=== PATIENT | male | born 1995 | race African-American/Black ===

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

== ENCOUNTER 2019-09-21 08:53 | Inpatient (IN) ==
[2019-09-21] MEDS ORDERED: ZOSYN 4.5 GM in NS 100 ML IV ONE (09:18)
[2019-09-21] MEDS ORDERED: VANCOMYCIN 1 GM/NS 1 GM/250 ML IVPB IV ONE (09:18)
--- NOTE | 2019-09-21 09:20 | PROVIDER DOCUMENTATION ---
HPI-Musculoskeletal Pain/Inj - GENERAL Chief Complaint: Abscess Stated Complaint: ABSCESS/LEFT HAND Time Seen by Provider: 09/21/19 09:05 Source: patient, police - HX OF PRESENT ILLNESS-MUSKULOSKELTAL Nature of Presenting Problem: 24yom presents to ED to report increased pain/swelling left hand despite taking Bactrim DS 2 PO BID since last ED visit Saturday. He denies fever/chills/N/V. Quality of Pain: reports: aching Severity in ED: moderate Onset/Duration: gradual, 5 days ago Timing: still present, getting worse Modifying Factors: improves with: movement Any recent injury?: No Locality of Occurance: Home Similar Symptoms Previously?: No Recently seen or treated by another doctor?: No Review of Systems - Adult - REVIEW OF SYSTEMS - ADULT Constitutional: reports: no symptoms reported. denies: chills, fever Eyes: reports: no symptoms reported Ears, Nose, Mouth & Throat: reports: no symptoms reported Cardiovascular: reports: no symptoms reported Respiratory: reports: no symptoms reported Gastrointestinal: reports: no symptoms reported Genitourinary: reports: no symptoms reported Musculoskeletal: reports: see HPI, other (left hand pain) Integumentary: reports: see HPI, other (left hand redness/swelling) Neurological: reports: no symptoms reported Psychiatric: reports: no symptoms reported Endocrine: reports: no symptoms reported Hematologic/Lymphatic: reports: no symptoms reported Allergic/Immunologic: reports: no symptoms reported All Other Systems: Reviewed and Negative Past History - Adult - PAST MEDICAL HISTORY-ADULT Review of Records: reports: Old Records Reviewed, Nursing Assessment Review, Medications Reviewed, Social history reviewed & non-contributory. Major Childhood Illnesses: reports: denies history Cardiovascular: reports: denies history Respiratory: reports: denies history Gastrointestinal: reports: denies history Obstetrical/Gynecological: reports: denies history Genitourinary: reports: denies history Musculoskeletal: reports: denies history Neurological: reports: denies history Endocrine/Immune: reports: denies history Other Conditions: reports: denies history - PRIOR SURGERIES/PROCEDURES Surgical/Procedure History: reports: none - IMMUNIZATION STATUS Childhood Immunizations: See Nurse Assessment Flu Vaccine: See Nurse Assessment - FAMILY HISTORY Family History: reviewed, not pertinent - SOCIAL HISTORY Smoking: non-smoker Living Situation: family Physical Exam-Injury Related - Physical Exam-Injury Related Initial Vital Signs Reviewed: Yes General Appearance: appears well, alert, no apparent distress Eyes: PERRL/EOMI, pink conjunctivae Head, Ears, Nose, Mouth & Throat: normocephalic/atraumatic, moist mucous membranes, normal ENT inspection Neck: non-tender, supple, normal inspection Respiratory: chest non-tender, lungs clear, normal breath sounds Cardiovascular: normal peripheral pulses, regular rate, rhythm Peripheral Pulses: radial (R): 4+, radial (L): 4+ Abdominal Exam: normal bowel sounds, non tender, soft, no organomegaly Lymphatic: no adenopathy Back Exam: normal inspection, no CVA tenderness, no vertebral tenderness Extremity: normal range of motion, normal gait, swelling (left hand moderately erythematous and edematous; cap ref < 3sec) Integumentary: warm/dry, other (left hand erythematous and edematous) Neurologic: [employer] rules footballer II-XII nml as tested, grossly normal, no motor/sensory deficits Psych/Mental Status: normal mood/affect, normal thought content, normal thought process, oriented x 3 Progress - PLAN OF CARE/RESULTS Progress/Plan/Lab Results: Vital Signs - 8 hr 09/21/19 09:01 Temperature 98.1 F Pulse Rate 87 Respiratory Rate 18 Blood Pressure 155/85 O2 Sat by Pulse Oximetry 99 Laboratory Results - last 24 hr 09/21/19 09:45 WBC 16.72 H RBC 4.21 L Hgb 12.7 L Hct 39.3 L MCV 93.3 MCH 30.2 MCHC 32.3 L RDW Std Deviation 12.3 Plt Count 262 MPV 10.2 Immature Gran % (Auto) 0.4 Neut % (Auto) 74.0 Lymph % (Auto) 14.3 L Baxter % (Auto) 9.9 H Eos % (Auto) 1.3 Baso % (Auto) 0.1 Immature Gran # (Auto) 0.07 H Neut # (Auto) 12.38 H Lymph # (Auto) 2.39 Baxter # (Auto) 1.65 H Eos # (Auto) 0.21 Baso # (Auto) 0.02 Orders Category Date Time Status Saline Loc NOW Care 09/21/19 09:18 Active HAND COMPLETE LEFT [RAD] Stat Exams 09/21/19 09:19 Completed BLOOD CULTURE [BLDCUL] Stat Lab 09/21/19 10:03 Received CBC WITH DIFF [HEME] Stat Lab 09/21/19 09:45 Completed COMPREHENSIVE METABOLIC PANEL [CHEM] Stat Lab 09/21/19 09:45 Received LACTATE, PLASMA [CHEM] Stat Lab 09/21/19 09:45 Received Piperacillin/Tazobactam [Zosyn] 4.5 gm Med 09/21/19 09:18 Discontinued 0.9% Sodium Chloride Inj [Ns] 100 ml IV NOW Vancomycin 1 gm/Ns Med 09/21/19 09:18 Discontinued 1 gm in 250 ml IV NOW Result Diagrams: 09/21/19 09:45 - REASSESSMENT Reassessment #1 Time Reassessed: 10:23 (Paged Hospitalist service for admit related to left hand abscess and cellulitis.) Reassessment #2 Time Reassessed: 10:27 (Spoke with Mally, Hospitalist ADÁN, she accepts for admit to Dr. Mauro and may consult surgery after she examines patient.) Departure - Departure Date of Disposition Decision: 09/21/19 Time of Disposition Decision: 10:23 DIAGNOSIS: Cutaneous abscess of left hand, Cellulitis of left hand Disposition: ADMITTED INPATIENT 09 Certified Medical Emergency: Emergent Condition: Stable Referrals and Follow-Ups: None,PCP [Primary Care Provider] - - Critical Care Note This patient required my direct & personal management of CC.: No Attestation - Physician/ ADRI Attestation Patient care was provided by Advanced Practice Provider:: Yes Advanced Practice Provider:: Alondra Abdi Advanced Practice Provider documentation review:: The Mid-level provider documentation, treatment plan and medical decision making was reviewed by the physician who agrees with all treatment and medical decision making by the [facility]. The physician spent face to face time with patient:: No Advanced Practice Provider documentation review:: Supervising physician onsite and consulted in the evaluation and care of this patient. The physician did not have a face to face encounter with the patient.
--- NOTE | 2019-09-21 09:42 | Diag Imaging Result Doc PS360 ---
EXAM: HAND COMPLETE LEFT HISTORY: left hand pain TECHNIQUE: Three views COMPARISON: None. FINDINGS: No fracture. No dislocation. Normal joint spaces. No bone erosions. Normal mineralization. No other bony abnormality. IMPRESSION: Negative study Electronically signed by Sage Monique 09/21/2019 9:40 AM
[2019-09-21 10:05] LABS: BASO# 0.02 X1000 (0.0-0.2); BASO% 0.1 % (0.0-0.8); EOS# 0.21 X1000 (0.0-0.7); EOS% 1.3 % (0.0-10.0); HEMATOCRIT 39.3 % (42.0-52.0); HEMOGLOBIN 12.7 g/dL (14.0-18.0); IMM GRAN# 0.07 X1000 (0.0-0.04); IMM GRAN% 0.4 % (0.0-0.5); LYMPH# 2.39 X1000 (1.2-3.4); LYMPH% 14.3 % (20.5-51.1); MCH 30.2 PG (27-31); MCHC 32.3 g/dL (33-37); MCV 93.3 FL (81-99); MONO# 1.65 X1000 (0.11-0.59); MONO% 9.9 % (1.7-9.3); MPV 10.2 FL (7.4-10.4); NEUT# 12.38 X1000 (1.4-6.5); PLT 262 X1000 (130-400); RBC 4.21 XMIL (4.7-6.1); RDW 12.3 % (11.5-14.5); WBC 16.72 X1000 (4.8-10.8)
[2019-09-21 10:44] LABS: AGAP 11; ALB/GLOB RATIO 1.2; ALBUMIN 3.9 g/dL (3.5-5.0); ALKALINE PHOSPHATASE 83 U/L (32-122); BUN 7 mg/dL (8-22); CALCIUM 8.9 mg/dL (8.8-10.2); CHLORIDE 106 mmol/L (98-107); COSMO 279; CREATININE 0.7 mg/dL (0.7-1.2); ESTIMATED GFR > 60; GLUCOSE 102 mg/dL (70-104); GOT 21 U/L (10-34); GPT 16 U/L (10-44); POTASSIUM 3.8 mmol/L (3.5-5.1); SODIUM 141 mmol/L (136-145); TCO2 24 mmol/L (25-35); TOTAL BILIRUBIN 0.26 mg/dL (0.20-1.00); TOTAL PROTEIN 7.2 g/dL (6.3-8.3)
[2019-09-21] MEDS ORDERED: ZOFRAN IV PRN (11:14)
[2019-09-21] MEDS ORDERED: TORADOL IV ONE (11:14)
[2019-09-21] MEDS ORDERED: VANCOMYCIN IV PER PHARMACY MISC SCH (11:14)
[2019-09-21] MEDS ORDERED: TYLENOL PO PRN (11:14)
[2019-09-21] MEDS ORDERED: NS 1,000 ML IV SCH (11:14)
--- NOTE | 2019-09-21 11:48 | HISTORY AND PHYSICAL ---
CHIEF COMPLAINT: Worsening pain and swelling to the left hand after having a splinter 2 weeks ago. HISTORY OF PRESENTING ILLNESS: This is a 24-year-old male who presents to [facility] with complaints of increased pain and swelling to his left hand after he had attempted to remove a splinter approximately 2 weeks ago. Was in the emergency room on 09/18/2019 and diagnosed with a left hand cellulitis and was placed on Bactrim DS and he has been taking that medication. Currently is an inmate at the [facility] and has been receiving his medications as prescribed but no improvement. He is now noted to have an abscess to the left palm with erythema and edema that streaks up his left arm, unable to close his hand due to the pain and edema. Denied any fever, chills, nausea, vomiting. Workup did show a white blood cell count of 16.72, so he will be admitted to the medical unit for further evaluation and treatment. PAST MEDICAL HISTORY: ADHD. PAST SURGICAL HISTORY: None. FAMILY HISTORY: Reviewed, noncontributory. SOCIAL HISTORY: He typically lives with family, but is currently an inmate at [facility] for an unknown reason and states he has been there about a month and a half. States he was a previous smoker of 2 to 3 cigarettes a day. Denied any alcohol use and did smoke marijuana previously but of course, none since he has been locked up. ALLERGIES: Tomato. HOME MEDICATIONS: No medications routinely at this time. LABORATORY DATA: Showed a white blood cell count of 16.72, hemoglobin 12.7, hematocrit 39.3, platelets 262,000. Sodium 141, potassium 3.8, chloride 106, CO2 24, BUN of 7, creatinine 0.7. Plasma lactate of 1.1. Left hand x-ray showed a negative study. REVIEW OF SYSTEMS: He denied any fever, chills, blurred vision, dizziness, chest pain, coughing. No shortness of breath. He did have pain to his left hand, worse with any type of movement. Denied any constipation, diarrhea, burning or hurting with urination. PHYSICAL EXAMINATION: On arrival he had a temperature of 98.1 degrees, pulse 87, respirations 18, blood pressure 155/85, and was saturating 99% on room air. GENERAL: This is a 24-year-old male lying in the bed and answers questions appropriately. HEENT: Normocephalic, atraumatic. Normal ENT inspection. Oropharynx and nares are clear. EYES: Pupils are equal, round, reactive to light and accommodation. Extraocular movements are intact. NECK: Normal inspection, normal range of motion. LUNGS: Clear to auscultation bilaterally with equal lung expansion and chest wall movement. HEART: Regular rate and rhythm. No murmurs, rubs, or gallops. ABDOMEN: Soft, nontender, nondistended. Bowel sounds are present x 4 quadrants. MUSCULOSKELETAL: He had 5/5 strength to his right upper extremity and bilateral lower extremity. Left upper extremity unable to assess due to the cellulitis, abscess to his left hand. NEUROLOGICAL: The cranial nerves 2-12 appear grossly intact. ASSESSMENT: 1. Left hand abscess/cellulitis with failed outpatient treatment. 2. Leukocytosis. 3. Tobacco abuse. PLAN: He will be admitted to the medical unit. Placed on a regular diet. We will place him on vancomycin per pharmacy protocol, Zosyn 3.375 g IV q. 6. We will consult Surgery. We discussed smoking cessation with this patient who verbalized understanding. We will recheck a CBC and BMP in the a.m. I will give him some Roach 7.5 one p.o. q.4 hours p.r.n. for pain until seen by Surgery and further orders after seen by attending and bus info consultant. Dictated by ADÁN Hays for Dusty Umana MD Addendum: Patient seen and examined by myself. Agree with ADÁN note. It reflects my assessment and plan. Patient is being admitted to hospital for hand abscess. Surgery will be consulted. Will be discharged once is cleared by surgeon. cc: ADÁN Hays MD [facility]
[2019-09-21] MEDS ORDERED: VANCOMYCIN 2,300 MG in NS 500 ML IV ONE (13:00)
[2019-09-21] MEDS ORDERED: DIPRIVAN 1% ONE (16:08)
[2019-09-21] MEDS ORDERED: ROBINUL ONE (16:09)
[2019-09-21] MEDS ORDERED: XYLOCAINE-MPF 2% ONE (16:09)
[2019-09-21] MEDS ORDERED: ZOFRAN ONE (16:19)
[2019-09-21] MEDS ORDERED: OFIRMEV 1000 MG/ISOTONIC SOLN 1,000 MG/100 ML BOTTLE ONE (16:19)
[2019-09-21] MEDS ORDERED: TORADOL ONE (16:19)
[2019-09-21] MEDS ORDERED: DEMEROL ONE (16:53)
--- NOTE | 2019-09-21 17:09 | CONSULTATION ---
DATE OF CONSULTATION: 09/21/2019 Vaughn David is a 24-year-old black male who is incarcerated. Evidently had a foreign body involving his left hand which he described as a splinter which he thought he removed but he had swelling of his hand cellulitis. He was seen our emergency department about 2 days ago, started on Bactrim but clinically he has just worsened and now he is admitted and we were asked to evaluate him because of soft tissue abscess involving his left hand. X-rays of the left hand show no evidence of fracture. PAST MEDICAL HISTORY: ADHD. PAST SURGICAL HISTORY: None. MEDICATIONS: He has been on Bactrim recently and pain medicine. FAMILY HISTORY: Reviewed and noncontributory. ALLERGIES: Tomato. HOME MEDICATIONS: No home medications. REVIEW OF SYSTEMS: A 14-point review of systems was performed and was essentially negative except for the history of present illness. He is at [facility] at this time. He typically lives with his family. He is a smoker. He does use marijuana. On exam, Mr. David is a healthy young black male in no acute distress. HEENT: No jaundice. No oral lesions. Satisfactory dentition. No cervical or supraclavicular lymphadenopathy. His heart has regular rate. Lungs are clear to auscultation and percussion bilaterally. His abdomen soft, nontender without palpable mass. He has palpable peripheral pulses. He has a swollen left hand with what appears to be undrained purulence on the palmar side mid palmar aspect left hand. He has swelling of his left hand and cellulitis going up his left forearm. He does have a palpable left radial pulse. IMPRESSION: Soft tissue abscess left hand probably related to splinter or foreign body. Unresponsive to p.o. antibiotics and local wound care. He will need to go to surgery for incision and drainage. Will make him n.p.o. and plan to do that this afternoon. I spoke with the patient about the procedure and he wants to proceed. cc: Marguerite Kerr MD
[2019-09-21] MEDS: DILAUDID ONE ×4 (17:11→17:32)
[2019-09-21] MEDS ORDERED: NORCO-7.5 ONE (17:48)
[2019-09-21] MEDS ORDERED: PHENERGAN ONE (17:48)
[2019-09-21] MEDS: ZOSYN 3.375 GM in NS 50 ML IV SCH (19:55)
--- NOTE | 2019-09-21 21:41 | OPERATIVE NOTE ---
PROCEDURE DATE: 09/21/2019 PREOPERATIVE DIAGNOSIS: Soft tissue abscess palmar aspect, left hand. POSTOPERATIVE DIAGNOSIS: Soft tissue abscess palmar aspect, left hand. PRINCIPAL PROCEDURE: Incision and drainage with debridement of skin, subcutaneous tissue, of abscess palmar aspect, left hand. SURGEON: Dr. Cirilo MD. ANESTHESIA: General. ESTIMATED BLOOD LOSS: 25 mL. DRAINS: None. INDICATIONS: Vaughn David is a 24-year-old, black male who is in [facility]. He feels that he suffered a splinter in this area of his hand several days ago. He felt that he got the foreign body out several days ago. He was seen in our emergency department, placed on p.o. antibiotics, but the swelling and pain in his left hand got worse and he also has cellulitis involving his left forearm. He is admitted through the emergency department. We were asked to evaluate him. FINDINGS: He had thick pus in the deep soft tissue abscess palmar aspect mid left hand. DESCRIPTION OF PROCEDURE: The patient was brought to the operating room, placed supine, received general anesthesia, and was ventilated. His left hand was prepped and draped within a sterile field. He had an obvious purulence in the middle of his palm, left hand. I made an incision with a 15 blade scalpel to drain this abscess cavity. We took cultures and then the suction was used to drain the purulence. This abscessed cavity went into the deep tissue of his left hand. We made sure that the abscess cavity was widely opened and all pus was drained. The we used forceps and tissue scissors to debride necrotic skin and subcutaneous tissue. We did not have to debride any tendon or bone or muscle. We thoroughly irrigated out the abscess cavity once we were sure that it was totally opened with 3 L of saline to gravity drain. We then packed the wound open with iodoform gauze followed by dry dressing and a Kerlix wrap. He tolerated the procedure well with plans for him to go the recovery room and then be readmitted to the floor for ongoing IV antibiotics. cc: Marguerite Kerr MD
[2019-09-21] MEDS: VANCOMYCIN 1,700 MG in NS 250 ML IV SCH (23:31)
[2019-09-21] MEDS: NORCO-7.5 PO PRN (23:31)
[2019-09-21] MEDS: PERIDEX MT SCH (23:38)
[2019-09-22] MEDS: ZOSYN 3.375 GM in NS 50 ML IV SCH ×6 (02:32→20:32)
[2019-09-22] MEDS: VANCOMYCIN 1,700 MG in NS 250 ML IV SCH ×2 (02:33→13:10)
[2019-09-22] MEDS: NORCO-7.5 PO PRN ×4 (03:50→22:01)
[2019-09-22 06:24] LABS: BASO# 0.02 X1000 (0.0-0.2); BASO% 0.1 % (0.0-0.8); EOS# 0.23 X1000 (0.0-0.7); EOS% 1.7 % (0.0-10.0); HEMATOCRIT 38.1 % (42.0-52.0); HEMOGLOBIN 12.3 g/dL (14.0-18.0); IMM GRAN# 0.04 X1000 (0.0-0.04); IMM GRAN% 0.3 % (0.0-0.5); LYMPH# 2.43 X1000 (1.2-3.4); LYMPH% 17.8 % (20.5-51.1); MCH 30.4 PG (27-31); MCHC 32.3 g/dL (33-37); MCV 94.3 FL (81-99); MONO# 1.22 X1000 (0.11-0.59); MONO% 8.9 % (1.7-9.3); MPV 10.3 FL (7.4-10.4); NEUT# 9.73 X1000 (1.4-6.5); NEUT% 71.2 % (42.2-75.2); PLT 256 X1000 (130-400); RBC 4.04 XMIL (4.7-6.1); RDW 12.1 % (11.5-14.5); WBC 13.67 X1000 (4.8-10.8)
[2019-09-22 06:51] LABS: AGAP 13; BUN 12 mg/dL (8-22); CALCIUM 9.1 mg/dL (8.8-10.2); CHLORIDE 103 mmol/L (98-107); COSMO 280; CREATININE 0.9 mg/dL (0.7-1.2); ESTIMATED GFR > 60; GLUCOSE 108 mg/dL (70-104); POTASSIUM 3.7 mmol/L (3.5-5.1); SODIUM 140 mmol/L (136-145); TCO2 24 mmol/L (25-35)
[2019-09-22] MEDS: PERIDEX MT SCH ×2 (08:35→20:32)
--- NOTE | 2019-09-22 18:34 | PROGRESS NOTE ---
DATE: 09/22/2019 INTERVAL HISTORY: He underwent incision and drainage of his hand, which he tolerated well of palmar aspect. He complains of mild pain, but that is tolerable. He is denying any other complaints. I discussed about MRSA suspected. I answered all of his questions. VITAL SIGNS: He has been afebrile with temperature of 98.5 degrees, pulse of 71, respiratory 18, blood pressure 140/70, saturating 96% on room air. PHYSICAL EXAMINATION: General: Not in acute distress. Oral cavity is moist. Lungs: Air entry bilaterally equal. No wheeze, rhonchi, crackles. Cardiovascular: S1, S2 normal. No murmur, rub, or gallop. Abdomen: Soft, nontender. No lower extremity edema. Extremities: His left arm is in a bandage. He is able to move his fingers. LABORATORY DATA: Suggestive of improving leukocytosis, normocytic anemia, normal platelet count. Normal electrolytes. MICROBIOLOGY: No new data except the Gram stain is growing gram-positive cocci. ASSESSMENT AND PLAN: 1. Left hand palmar aspect abscess with cellulitis status post failed outpatient treatment, now status post incision and drainage on September 21. I will continue him on intravenous antibiotics. Follow up final culture results. 2. Tobacco abuse. He was initially counseled on tobacco cessation. DISPOSITION: Continue to monitor patient inside the hospital for need for IV antibiotics. Plan of care discussed with him. His questions were answered. cc: Telly Estrada MD
[2019-09-22] MEDS: NICODERM PATCH TD SCH (23:51)
[2019-09-23] MEDS: VANCOMYCIN 1,700 MG in NS 250 ML IV SCH ×2 (01:43→15:49)
[2019-09-23] MEDS: NORCO-7.5 PO PRN ×3 (03:00→13:26)
[2019-09-23] MEDS: ZOSYN 3.375 GM in NS 50 ML IV SCH (03:00)
[2019-09-23 06:45] LABS: BASO# 0.03 X1000 (0.0-0.2); BASO% 0.3 % (0.0-0.8); EOS# 0.29 X1000 (0.0-0.7); EOS% 3.1 % (0.0-10.0); HEMATOCRIT 41.6 % (42.0-52.0); HEMOGLOBIN 13.5 g/dL (14.0-18.0); IMM GRAN# 0.04 X1000 (0.0-0.04); IMM GRAN% 0.4 % (0.0-0.5); LYMPH# 2.39 X1000 (1.2-3.4); LYMPH% 25.9 % (20.5-51.1); MCH 30.2 PG (27-31); MCHC 32.5 g/dL (33-37); MCV 93.1 FL (81-99); MONO% 10.8 % (1.7-9.3); NEUT# 5.49 X1000 (1.4-6.5); NEUT% 59.5 % (42.2-75.2); PLT 284 X1000 (130-400); RBC 4.47 XMIL (4.7-6.1); RDW 12.1 % (11.5-14.5); WBC 9.24 X1000 (4.8-10.8)
[2019-09-23 07:08] LABS: AGAP 14; BUN 10 mg/dL (8-22); CALCIUM 8.9 mg/dL (8.8-10.2); CHLORIDE 101 mmol/L (98-107); COSMO 279; CREATININE 0.7 mg/dL (0.7-1.2); ESTIMATED GFR > 60; GLUCOSE 101 mg/dL (70-104); POTASSIUM 3.9 mmol/L (3.5-5.1); SODIUM 140 mmol/L (136-145); TCO2 25 mmol/L (25-35)
[2019-09-23] MEDS: NICODERM PATCH TD SCH (08:09)
[2019-09-23] MEDS: PERIDEX MT SCH (08:09)
--- NOTE | 2019-09-23 11:26 | PROGRESS NOTE ---
DATE: 09/23/2019 INTERVAL HISTORY: No acute events overnight. His blood culture has been negative. The culture from the left hand is growing MRSA. He is denying any complaints. OBJECTIVE: VITAL SIGNS: Temperature 97.7 degrees, pulse 75, respiratory 18, blood pressure 150/80, he is saturating 100% on room air. PHYSICAL EXAMINATION: General: Not in acute distress. HEENT: Oral cavity is moist. Lungs: Air entry bilaterally equal with no wheeze, rhonchi. Crackles. Cardiovascular: S1, S2 normal. No murmur, rub or gallop. Abdomen: Soft, nontender. Extremities: No lower extremity edema. His left arm is bandaged. He is able to wiggle his toes. He does have significant tenderness of the left middle finger on movement. Neurologic: He is alert oriented x3. LABORATORY DATA: Suggestive of resolution of leukocytosis. Normal electrolytes. MICROBIOLOGY: MRSA in the wound culture. ASSESSMENT AND PLAN: Left hand palmar abscess with cellulitis due to Methicillin-resistant Staphylococcus aureus, status post failed outpatient oral treatment, status post incision and drainage on September 21. Continue intravenous vancomycin and await final surgical recommendation at which point I will consider changing his antibiotics to oral and discharge him. Continue nicotine patch for tobacco abuse. DISPOSITION: Awaiting Surgery recommendation. Plan of care discussed with the patient and his questions were answered. cc: Telly Estrada MD
[2019-09-23 17:15] VITALS: BP 132/75
--- NOTE | 2019-09-24 15:11 | DISCHARGE SUMMARY ---
ADMISSION DATE: 09/21/2019 DISCHARGE DATE: 09/23/2019 ADMITTING DIAGNOSIS: Soft tissue infection of the palm, left hand. DISCHARGE DIAGNOSIS: Soft tissue infection of the palm, left hand. PRINCIPAL PROCEDURE: Incision and drainage of soft tissue infection, palm, left hand on 09/21/2019. DISCHARGE DISABILITIES: Full. DISCHARGE DISPOSITION: He will return to our outpatient office in one week for followup. DISCHARGE MEDICATIONS: Hope 7.5 for pain and Bactrim DS 1 p.o. b.i.d., 15 of these with no refill. DISCHARGE DIET: Regular. HOSPITAL COURSE: Mr. Vaughn David is a 24-year-old black male who was initially brought in by [facility] because of a soft tissue infection involving his left hand. He felt that this began when a splinter was stuck in his hand. He felt he removed the splinter but the infection worsened. He is admitted through our emergency department on 09/21/2019 and was quickly released by the detention. On the day of admission, I took him to the operating room, and performed incision and drainage of a soft tissue infection involving the deep tissue of his left palm. He remains on IV antibiotics throughout his hospitalization. The cultures documented Staph aureus. Clinically, he responded to the incision and drainage. His cellulitis involving his left forearm quickly resolved. The swelling of his hand was much improved at the time of discharge. At discharge, he had an open wound which appeared to be clean. I discussed wound care with him. I will see him in our outpatient offices in a week. He knows to contact us with any problems. I did write him a prescription for Bactrim DS. cc: Marguerite Kerr MD
== END 2019-09-23 17:44 | disposition home or self-care (01) | DRG 580 ==
LOC: ED 08:53 → SUATTDRO 10:40 → 4N 10:40
PROVIDERS: ATTEND Internal Medicine